=== PATIENT | female | born 1960 | race African-American/Black ===

== ENCOUNTER 2022-05-01 12:41 | Emergency (ER) | payer OTHER ==
[~2022-05-01] VITALS: Ht 157.5 cm; Wt 68.5 kg
[2022-05-01 12:43] VITALS: BP 130/78
[2022-05-01] MEDS ORDERED: MORPHINE SULFATE 4 MG/ML CPJ (NOT FOR IM USE) IV STA (12:51)
[2022-05-01] MEDS ORDERED: ONDANSETRON HCL 4MG/2ML INJ IV STA (12:51)
[2022-05-01] MEDS ORDERED: SODIUM CHLORIDE 0.9% 1,000 ML IV ONE (13:00)
[2022-05-01] MEDS ORDERED: MORPHINE SULFATE 2 MG/ML CPJ (NOT FOR IM USE) IV ONE (13:29)
[2022-05-01] MEDS ORDERED: HYDR-4001 MT (15:23)
[2022-05-01] MEDS ORDERED: IBUP-2029 MT (15:23)
== END 2022-05-01 15:57 | disposition home or self-care (01) ==
LOC: ER 13:30
DX: S99.811A Other specified injuries of right ankle, initial encounter (principal); S60.414A Abrasion of right ring finger, initial encounter; M79.7 Fibromyalgia; M19.90 Unspecified osteoarthritis, unspecified site; V43.52XA Car driver injured in collision with other type car in traffic accident, initial encounter; Y93.89 Activity, other specified; Y92.488 Other paved roadways as the place of occurrence of the external cause
CPT/HCPCS: 29515; 73140; 73610; 73630; 96361; 96374; 96375; 99284; J2270; J2405; J7030; Z7610